=== PATIENT | male | born 1935 | race Caucasian/White ===

== ENCOUNTER 2017-12-17 23:39 | Emergency (ER) | payer MEDICARE, MEDICAID ==
[2017-12-18] MEDS ORDERED: Ondansetron ODT 8 MG TAB ONE (01:06)
[2017-12-18] MEDS ORDERED: Morphine 4 MG/ML VIAL ONE (01:06)
== END 2017-12-18 04:40 | disposition home or self-care (01) ==
LOC: ERS 23:39
DX: M16.12 Unilateral primary osteoarthritis, left hip (principal); M17.12 Unilateral primary osteoarthritis, left knee; I10 Essential (primary) hypertension; J44.9 Chronic obstructive pulmonary disease, unspecified; F17.210 Nicotine dependence, cigarettes, uncomplicated; Z71.6 Tobacco abuse counseling; Z79.82 Long term (current) use of aspirin
CPT/HCPCS: 96374; 99406; J2270

== ENCOUNTER 2019-11-06 02:32 | Emergency (ER) | payer MEDICAID, MEDICARE ==
[2019-11-06 03:16] LABS: #Basophils 0.1 thou/uL (0.0-0.2); #Eosinphils 0.2 thou/uL (0.0-0.7); #Lymphocytes 2.4 thou/uL (1.20-3.40); #Monocytes 1.2 thou/uL (0.11-0.59); #Neutrophils 9.8 thou/uL (1.40-6.50); %Basophils 0.7 % (0.0-1.0); %Eosinophils 1.6 % (0.0-10.0); %Lymphocytes 17.2 % (21.0-51.0); %Monocytes 8.9 % (0.0-10.0); %Neutrophils 71.7 % (42.0-75.0); Hemoglobin 14.6 g/dL (14.0-18.0); Mean Corpuscular HGB CONC 33.9 g/dL (32.0-36.0); Mean Corpuscular Hemoglobin 32.8 pg (27.0-31.0); Mean Corpuscular Volume 96.7 fL (78.0-98.0); Mean Platelet Volume 8.3 fL (7.4-10.4); Platelet Count 257 thou/uL (130-400); RBC Distribution Width 12.8 % (11.5-14.5); Red Blood Cell (RBC) Count 4.44 mill/uL (4.70-6.10); White Blood Cell (WBC) Count 13.7 thou/uL (4.8-10.8)
[2019-11-06] MEDS ORDERED: HYDROcodone/Acetaminophen 5/325 mg Tablet ONE (03:21)
[2019-11-06 03:38] LABS: ALT (SGPT) 13 U/L (8-55); AST (SGOT) 17 U/L (5-34); Albumin 3.9 g/dL (3.4-4.8); Alkaline Phosphatase 98 U/L (40-110); Anion Gap 15 mmol/L (10-20); BUN (Urea Nitrogen) 14 mg/dL (8.4-25.7); Bilirubin, Total 0.4 mg/dL (0.2-1.2); Calc. Creatinine Clearance 0 mL/min (70-130); Calcium 8.8 mg/dL (7.8-10.44); Carbon Dioxide 23 mmol/L (23-31); Chloride 107 mmol/L (98-107); Estimated GFR-MDRD 90; Globulin 2.5 g/dL (2.4-3.5); Glucose 107 mg/dL (83-110); Potassium 3.9 mmol/L (3.5-5.1); Protein, Total 6.4 g/dL (5.8-8.1); Sodium 141 mmol/L (136-145)
--- NOTE | 2019-11-06 07:30 | RAD ---
1 VIEW CHEST: Date: 11/06/2019 HISTORY: Right-sided chest pain for 2-3 days. Coughing. COMPARISON: 07/25/2012. FINDINGS: Linear bibasilar densities are seen, partially imaged on prior exam and may be related to mild bibasi lar scarring. No consolidation or pleural fluid is seen. The cardiac silhouette and pulmonary vascula ture are within normal limits. No other interval change. IMPRESSION: Mild chronic lung changes without evidence of an acute cardiopulmonary process. POS: NEVAEH
== END 2019-11-06 03:52 | disposition home or self-care (01) ==
LOC: ERS 02:32
DX: R07.9 Chest pain, unspecified (principal); J44.9 Chronic obstructive pulmonary disease, unspecified; I10 Essential (primary) hypertension; F17.210 Nicotine dependence, cigarettes, uncomplicated; Z79.899 Other long term (current) drug therapy
CPT/HCPCS: 36415; 71045; 80053; 83880; 84484; 85025; 93005

== ENCOUNTER 2020-08-21 12:47 | Inpatient (IN) | payer MEDICARE, MEDICAID ==
[~2020-08-21 12:47] MED LIST: Iopamidol-370 76% 500 ML 1 ML ONE
[2020-08-21] MEDS ORDERED: Morphine 4 MG/ML VIAL ONE (13:29)
[2020-08-21] MEDS ORDERED: Ondansetron PF 4 MG/2 ML Vial ONE (13:29)
--- NOTE | 2020-08-21 13:35 | RAD ---
Exam: Chest one view HISTORY:Chest pain. Symptoms x2 days. Comparison: 11/06/2019 FINDINGS: Cardiac silhouette: Normal Aorta: Atherosclerosis and elongation Pulmonary vessels: Normal Costophrenic angles: Clear LUNGS: Inflation with chronic changes. No mass or consolidation. Pneumothorax: None Osseous abnormalities: None IMPRESSION: Atherosclerosis. Hyperinflation with chronic lung parenchymal changes
[2020-08-21 13:38] LABS: #Basophils 0.1 thou/uL (0.0-0.2); #Eosinphils 0.2 thou/uL (0.0-0.7); #Lymphocytes 2.6 thou/uL (1.20-3.40); #Neutrophils 4.7 thou/uL (1.40-6.50); %Basophils 0.9 % (0.0-1.0); %Eosinophils 1.9 % (0.0-10.0); %Lymphocytes 30.9 % (21.0-51.0); %Monocytes 11.3 % (0.0-10.0); Hemoglobin 14.2 g/dL (14.0-18.0); Mean Corpuscular HGB CONC 33.2 g/dL (32.0-36.0); Mean Corpuscular Hemoglobin 32.6 pg (27.0-31.0); Mean Corpuscular Volume 98.4 fL (78.0-98.0); Mean Platelet Volume 7.8 fL (7.4-10.4); Platelet Count 248 thou/uL (130-400); RBC Distribution Width 12.8 % (11.5-14.5); Red Blood Cell (RBC) Count 4.36 mill/uL (4.70-6.10); White Blood Cell (WBC) Count 8.5 thou/uL (4.8-10.8)
[2020-08-21 13:52] LABS: Bilirubin Negative (Negative); Blood, Urine 3+ (Negative); Clarity Clear (Clear); Glucose, Urine (Dipstick) Normal (Negative); Ketone, Urine Negative (Negative); Leukocyte 75 Leu/uL (Negative); Nitrite Negative (Negative); Protein, Urine (Dipstick) Negative (Neg-Trace); Specific Gravity, Urine 1.012 (1.002-1.036); Urobilinogen Normal mg/dL (Less than 2); pH, Urine 6.5 (5.0-9.0)
[2020-08-21 13:53] LABS: Bacteria/HPF None Seen HPF (None Seen); RBC/HPF 21-50 HPF (0-3); Squamous Epithelial 0-3 HPF (0-3)
[2020-08-21 14:01] LABS: ALT (SGPT) 16 U/L (8-55); AST (SGOT) 17 U/L (5-34); Albumin 3.9 g/dL (3.4-4.8); Alkaline Phosphatase 83 U/L (40-110); Anion Gap 13 mmol/L (10-20); BUN (Urea Nitrogen) 14 mg/dL (8.4-25.7); Bilirubin, Total 0.3 mg/dL (0.2-1.2); Calc. Creatinine Clearance 0 mL/min (70-130); Calcium 8.4 mg/dL (7.8-10.44); Carbon Dioxide 28 mmol/L (23-31); Chloride 106 mmol/L (98-107); Globulin 2.4 g/dL (2.4-3.5); Glucose 103 mg/dL (83-110); Potassium 4.5 mmol/L (3.5-5.1); Protein, Total 6.3 g/dL (5.8-8.1); Sodium 142 mmol/L (136-145)
--- NOTE | 2020-08-21 14:02 | CT ---
Exam: CTA chest with 3-D rendering: CTA abdomen with 3-D rendering: HISTORY: Chest pain COMPARISON: None TECHNIQUE: CT angiogram of the thoracic and abdominal aorta performed in the axial plane. Three-dimen sional reformatted images are submitted for interpretation. FINDINGS: Chest CT: Mediastinum: No mass, lymphadenopathy or hematoma Heart: Normal heart size. No significant pericardial fluid. Coronary arteries: Scattered atherosclerosis Trachea and central bronchi: Patent Pleural spaces: No pleural effusion. Right lung: Dependent atelectatic changes and nonspecific groundglass opacities in the lower lobe. Mi nimal scarring and atelectasis in the upper lobe. Left lung: Dependent atelectatic changes. Minimal ground glass opacities in the lower lobe. Pneumothorax: None Abdomen CT: Gallbladder: Contracted, likely due to a nonfasting state Portal vein: Limited evaluation. No obvious thrombus. Solid organs: Appropriate arterial phase enhancement of the liver, spleen, pancreas and adrenal gland s Kidneys: Symmetric enhancement. No obstructive uropathy. Multiple hypodensities in the left and right renal cortex. Largest hypodensities are compatible with a exophytic bilateral upper pole cyst. Mesentery: No mass, lymphadenopathy, free air or free fluid Alimentary canal: Limited evaluation by the lack of oral contrast. No evidence of a bowel obstruction . Normal ileocecal . Osseous structures: Multilevel degenerative changes of the lumbar spine. There is vacuum disc phenome non. Remote compression fracture at L1.. CT ANGIOGRAM: Aorta: There is appropriate enhancement and luminal diameter of the thoracic and abdominal aorta. Mil d atherosclerotic disease. Great vessels of the neck: Visualized great vessels of the neck are patent Celiac artery: Mild atherosclerosis. No significant stenosis Superior mesenteric artery and inferior mesenteric artery: No abnormal enhancement. Aortic bifurcation and visualized iliac arteries: Appropriate enhancement Renal arteries: Patent 2 right and solitary left renal arteries. IMPRESSION: No CT evidence for aortic aneurysm or aortic dissection.
[2020-08-21] MEDS ORDERED: cefTRIAXone\\ROCEPHIN 2 GM VIAL ONE (14:15)
[2020-08-21] MEDS ORDERED: Nitroglycerin 0.4 MG TAB (25 Tab Bottle) SL PRN (15:58)
[2020-08-21] MEDS ORDERED: Morphine 2 MG/ML VIAL SLOW IVP PRN (16:00)
[2020-08-21] MEDS ORDERED: Calcium Carbonate 500 MG ChewTAB PO PRN (16:03)
[2020-08-21] MEDS ORDERED: Ondansetron PF 4 MG/2 ML Vial IVP PRN (16:03)
[2020-08-21] MEDS ORDERED: Ondansetron ODT 4 MG TAB PO PRN (16:03)
[2020-08-21] MEDS ORDERED: HYDROcodone/Acetaminophen 5/325 mg Tablet PO PRN ×2 (16:03)
[2020-08-21] MEDS ORDERED: Acetaminophen 325 MG TAB PO PRN (16:03)
--- NOTE | 2020-08-21 16:09 | PDOC.HHP ---
Hospitalist HPI - History of Present Illness Chest pain History of Present Illness: PCP: Dr. Yao Fortune ([facility] [place]) The patient is an 84-year-old male with a past medical history significant for hypertension, hyperlipidemia and COPD that presents to the emergency department for the above complaint. The patient reports the acute onset of left-sided chest pain at approximately 2 AM in the morning. He reports that it woke him up from his sleep. Says that the pain is located left lower chest and back, described as "like getting stabbed by knife", exacerbated by deep inhalation, relieved with morphine. The patient reports that he had another episode of chest pain approximately 1 to 2 weeks ago, however, this pain was located right- sided chest pain, intermittent, described as "you can feel your heart racing", exacerbated and relieved by nothing. He reports that this pain had associated lightheadedness and dizziness. He reports that it lasted for approximately 24 hours and ended spontaneously. He reports it was unrelieved by aspirin and Aleve. He denies any heart palpitations or lightheadedness or swelling to his lower extremities with this episode of chest pain. He denies any shortness of breath or wheezing. He does have COPD and a chronic cough. He denies any history of DVT/PE. He is on "blood thinners", which he thinks is aspirin and Plavix. He reports dysuria and gross hematuria since yesterday. He denies any nausea, vomiting or diarrhea. He denies any melena or hematochezia. He denies any fever or chills. He has no known sick contacts. ED Course: Temperature 98.2 F, BP 186/92, HR 65, RR 16, SpO2 100% room air. EKG sinus bradycardia, PACs, left axis deviation 59 bpm Troponin negative, CXR no acute process CTA abdomen negative for aortic aneurysm or aortic dissection. UA positive leukocytes, WBCs and 3+ blood, no bacteria WBCs 8.5, hemoglobin 14.2, hematocrit 43, platelets 248 CMP unremarkable Medications: Rocephin Morphine Zofran Hospitalist ROS - Review of Systems All other systems reviewed; all pertinent +/- noted in HPI/Subj - Medication Medications: 1. Aspirin unknown dose. 2. Albuterol HFA inhaler as needed SLB/wheezing 3. Unknown nebs as needed Allergies: No known drug allergies CODE STATUS: Full code, confirmed with patient Hospitalist History - Past Medical History Source: patient Cardiac: reports: HTN, Hyperlipidemia Pulmonary: reports: COPD - Past Surgical History Past Surgical History: reports: Hernia Repair, Other (Back surgery) - Family History Other Family History: Poor historian. - Social History Smoking Status: Current every day smoker (2 packs/day greater than 30 years) Alcohol: reports: None Drugs: reports: none Living Situation: With Family Occupation: Works as a mechanical maintenance supervisor heavy machinery Activity level: independent ambulation - Exam General Appearance: NAD, awake alert. negative: ill appearing General - other findings: Uncomfortable Eye: anicteric sclera ENT: normocephalic atraumatic Neck: supple, no lymphadenopathy Heart: RRR, no murmur, no gallops, no rubs, normal peripheral pulses Respiratory: no wheezes, no rales, no ronchi Respiratory - other findings: Diminished throughout Gastrointestinal: soft, non-tender, normal bowel sounds, no guarding, no rigidity Gastrointestinal - other findings: Positive left CVAT Extremities: no cyanosis, no edema Skin: no rashes Neurological: cranial nerve grossly intact, no focal deficits Musculoskeletal: normal tone, normal strength Psychiatric: normal affect, A&O x 3 Hospitalist Results - Labs Result Diagrams: 08/21/20 13:19 08/21/20 13:19 Lab results: WBC 8.5 thou/uL (4.8-10.8) 08/21/20 13:19 Hgb 14.2 g/dL (14.0-18.0) 08/21/20 13:19 Hct 43.0 % (42.0-52.0) 08/21/20 13:19 MCV 98.4 fL (78.0-98.0) H 08/21/20 13:19 Plt Count 248 thou/uL (130-400) 08/21/20 13:19 Neutrophils % 55.0 % (42.0-75.0) 08/21/20 13:19 Sodium 142 mmol/L (136-145) 08/21/20 13:19 Potassium 4.5 mmol/L (3.5-5.1) 08/21/20 13:19 Chloride 106 mmol/L (98-107) 08/21/20 13:19 Carbon Dioxide 28 mmol/L (23-31) 08/21/20 13:19 BUN 14 mg/dL (8.4-25.7) 08/21/20 13:19 Creatinine 0.87 mg/dL (0.7-1.3) 08/21/20 13:19 Glucose 103 mg/dL (83-110) 08/21/20 13:19 Calcium 8.4 mg/dL (7.8-10.44) 08/21/20 13:19 Total Bilirubin 0.3 mg/dL (0.2-1.2) 08/21/20 13:19 AST 17 U/L (5-34) 08/21/20 13:19 ALT 16 U/L (8-55) 08/21/20 13:19 Alkaline Phosphatase 83 U/L (40-110) 08/21/20 13:19 Troponin I Less than 0.010 ng/mL (< 0.028) 08/21/20 13:19 Serum Total Protein 6.3 g/dL (5.8-8.1) 08/21/20 13:19 Albumin 3.9 g/dL (3.4-4.8) 08/21/20 13:19 Urine Ketones Negative mg/dL (Negative) 08/21/20 13:36 Urine Blood 3+ (Negative) A 08/21/20 13:36 Urine Nitrite Negative (Negative) 08/21/20 13:36 Ur Leukocyte Esterase 75 Luisito/uL (Negative) A 08/21/20 13:36 Urine RBC 21-50 HPF (0-3) A 08/21/20 13:36 Urine WBC 7-10 HPF (0-3) A 08/21/20 13:36 Ur Squamous Epith Cells 0-3 HPF (0-3) 08/21/20 13:36 Urine Bacteria None Seen HPF (None Seen) 08/21/20 13:36 - EKG Interpretation EKG: Sinus bradycardia, PACs, left axis deviation - Radiology Interpretation CT scan - abdomen Status: report reviewed by me Additional Comment: Negative for aortic aneurysm or aortic dissection. Hospitalist H&P A/P - Problem (1) Chest pain Code(s): R07.9 - CHEST PAIN, UNSPECIFIED Status: Acute (2) Bradycardia Code(s): R00.1 - BRADYCARDIA, UNSPECIFIED Status: Acute (3) Urinary tract infection with hematuria Code(s): N39.0 - URINARY TRACT INFECTION, SITE NOT SPECIFIED; R31.9 - HEMATURIA, UNSPECIFIED Status: Acute (4) HTN (hypertension) Code(s): I10 - ESSENTIAL (PRIMARY) HYPERTENSION Status: Chronic (5) HLD (hyperlipidemia) Code(s): E78.5 - HYPERLIPIDEMIA, UNSPECIFIED Status: Chronic (6) COPD (chronic obstructive pulmonary disease) Status: Chronic (7) Tobacco abuse Code(s): Z72.0 - TOBACCO USE Status: Chronic - Plan Plan: 84/M with PMH HTN, HLD, COPD presents for chest pain. Admit to telemetry floor, observation status. Expected length of stay less than 2 midnights. #Chest pain, rule out ACS A: Left CVAT, reproducible pain. Symptoms/pain relieved with morphine. Had 2 episodes of chest pain in past couple weeks. Each episode different. Previous episode concerning for cardiac issue. Today more consistent Nephrolithiasis. Chest pain versus nephrolithiasis. Heart score 5, KASSY UA score 3. Trend troponins, check TSH, FLP, mag level. Continue to hold aspirin due to hematuria. Give high intensity statin. Kinsley as needed, morphine as needed breakthrough pain. #Bradycardia EKG SB, 59 bpm's Order echocardiogram. Check electrolytes, TSH. Can consider cardiology consult based on findings. #Urinary tract infection with hematuria UA 3+ blood, WBCs, leukocyte esterase, no bacteria A: Positive for left CVAT No pyuria, afebrile. Continue Rocephin. Urine culture pending Order renal ultrasound to r/o nephrolithiasis. Check PT/INR. Patient typed and screened. Start Flomax. Consider urology consult based on findings #HTN Presented hypertensive. Poor historian related to home medications. Failed attempt to contact son via telephone in order to reconcile home medications. Voicemail full. We will monitor BP and add as needed antihypertensives as necessary. #Hyperlipidemia Check FLP. Start high intensity statin. #COPD Chronic, stable. Has as needed albuterol HFA and nebs at home. We will add if needed. #Tobacco abuse 2 pack/day smoker times greater than 30 years. Unwilling to quit. Refusing nicotine patch. Counseled tobacco cessation. No pharmacological DVT prophylaxis. SCDs for DVT prophylaxis. No GI prophylaxis. CODE STATUS is full code. Contact is his son Raoul at [phone]. Discussed the case with attending physician, Dr. Elias.
[2020-08-21 16:22] LABS: PTT 38.7 sec (22.9-36.1); Prothrombin Time 13.1 sec (12.0-14.7)
--- NOTE | 2020-08-21 17:51 | ULT ---
EXAM: BILATERAL RENAL ULTRASOUND 08/21/20 HISTORY: Hematuria. COMPARISON: None. FINDINGS: Bilaterally, no hydronephrosis. Right kidney measures 10.7 x 5.4 x 5.4 cm. Left kidney measures 10.5 x 5.4 x 5.1 cm. Mild bilateral renal cortical thinning. Anechoic focus emanating from the upper pole of the right kidney measures 3.1 x 3.8 x 2.7 cm, compati ble with exophytic cysts. Anechoic focus of the upper pole of the left kidney measures 4.1 x 4.7 x 4.7 cm, compatible with cyst . Additional smaller anechoic foci are identified in the left renal cortex. Bladder volume is 215 mL. No mucosal abnormality. IMPRESSION: 1. No hydronephrosis. 2. Bilateral renal cortical cysts. POS: PPP
[2020-08-21] MEDS ORDERED: hydrALAZINE 20 MG/ML VIAL SLOW IVP PRN (17:52)
[2020-08-21 17:56] VITALS: BMI 21.7
[2020-08-21 20:20] LABS: Hemoglobin 13.6 g/dL (14.0-18.0)
[2020-08-21] MEDS: Tamsulosin HCl 0.4 MG CAP PO SCH (20:23)
[2020-08-21] MEDS: Atorvastatin Calcium 40 MG TAB PO SCH (20:23)
[2020-08-21 20:45] LABS: Troponin I 0.011 ng/mL (< 0.028)
[2020-08-22 02:42] LABS: SARS-CoV-2 MS2 Positive; SARS-CoV-2 N Gene Negative; SARS-CoV-2 S Gene Negative; SARS-CoV-2 by NAA Not Detected (NotDetected); SARS-CoV-2 orf1ab Negative
[2020-08-22 04:42] LABS: #Eosinphils 0.2 thou/uL (0.0-0.7); #Neutrophils 5.3 thou/uL (1.40-6.50); %Basophils 0.5 % (0.0-1.0); %Eosinophils 2.2 % (0.0-10.0); %Lymphocytes 23.5 % (21.0-51.0); %Monocytes 11.7 % (0.0-10.0); %Neutrophils 62.2 % (42.0-75.0); Hemoglobin 13.3 g/dL (14.0-18.0); Mean Corpuscular HGB CONC 32.7 g/dL (32.0-36.0); Mean Corpuscular Hemoglobin 31.9 pg (27.0-31.0); Mean Corpuscular Volume 97.6 fL (78.0-98.0); Mean Platelet Volume 7.9 fL (7.4-10.4); Platelet Count 226 thou/uL (130-400); RBC Distribution Width 12.7 % (11.5-14.5); Red Blood Cell (RBC) Count 4.15 mill/uL (4.70-6.10); White Blood Cell (WBC) Count 8.5 thou/uL (4.8-10.8)
[2020-08-22 04:58] LABS: Anion Gap 11 mmol/L (10-20); BUN (Urea Nitrogen) 14 mg/dL (8.4-25.7); Calc. Creatinine Clearance 70 mL/min (70-130); Calcium 8.2 mg/dL (7.8-10.44); Carbon Dioxide 27 mmol/L (23-31); Cardiac Risk 3.5 (Less than 4.5); Chloride 105 mmol/L (98-107); Cholesterol 149 mg/dl (< 200 Desired); Glucose 92 mg/dL (83-110); HDL Cholesterol 43 mg/dL (>60 Neg Risk); LDL Cholesterol, Calculated 91 mg/dL; Potassium 4.3 mmol/L (3.5-5.1); Sodium 139 mmol/L (136-145); Triglycerides 74 mg/dL (Less than 150)
[2020-08-22] MEDS: cefTRIAXone\\ROCEPHIN 1 GM in Sodium Chloride 0.9% 100 ML IVPB SCH (14:18)
[2020-08-22] MEDS: Tamsulosin HCl 0.4 MG CAP PO SCH (19:37)
[2020-08-22] MEDS: Atorvastatin Calcium 40 MG TAB PO SCH (19:37)
--- NOTE | 2020-08-22 21:30 | PDOC.HOSPP ---
- Subjective Encounter Date: 08/22/20 Encounter Time: 13:00 Subjective: Patient seen and examined for chest discomfort which is resolved. Gross hematuria improving. Denies any new complaints. No palpitations, nausea, diaphoresis reported - Objective Vital Signs & Weight: Vital Signs (12 hours) Temp Pulse Resp BP BP BP BP 08/22/20 19:33 98.3 F 67 20 139/77 08/22/20 16:30 98.6 F 66 14 147/81 H 08/22/20 16:03 147/81 H 126/85 146/95 H 08/22/20 12:00 98.8 F 64 15 125/73 Pulse Ox 08/22/20 19:33 94 L 08/22/20 16:30 93 L 08/22/20 16:03 08/22/20 12:00 94 L Weight Weight 160 lb 8 oz I&O: 08/21/20 08/22/20 08/23/20 06:59 06:59 06:59 Intake Total 1200 600 Output Total 600 850 Balance 600 -250 Result Diagrams: 08/22/20 04:02 08/22/20 04:02 Additional Labs: Abnormal Lab Results - Last 48 hrs 08/21/20 13:19: RBC 4.36 L, MCV 98.4 H, MCH 32.6 H, Monocytes % 11.3 H, Monocytes # 1.0 H 08/21/20 13:20: APTT 38.7 H 08/21/20 13:36: Urine Blood 3+ A, Ur Leukocyte Esterase 75 A, Urine RBC 21-50 A, Urine WBC 7-10 A 08/21/20 20:12: Hgb 13.6 L, Hct 40.2 L 08/22/20 04:02: RBC 4.15 L, Hgb 13.3 L, Hct 40.5 L, MCH 31.9 H, Monocytes % 11.7 H, Monocytes # 1.0 H Microbiology - Entire Visit 08/21/20 13:36 Urine voided Urine Culture - Preliminary 08/21/20 13:23 Stool - Pending - Final Radiology Reviewed by me: Yes (CT showed no dissection) EKG Reviewed by me: Yes (Sinus rhythm on telemetry) Hospitalist ROS - Review of Systems Respiratory: denies: cough, dry, shortness of breath, hemoptysis, SOB with excertion, pleuritic pain, sputum, wheezing, other Cardiovascular: denies: chest pain, palpitations, orthopnea, paroxysmal noc. dyspnea, edema, light headedness, other - Medication Medications: Active Medications Generic Name Dose Route Start Last Admin Trade Name Freq PRN Reason Stop Dose Admin Atorvastatin Calcium 40 mg 08/21/20 21:00 08/22/20 19:37 Atorvastatin Calcium 40 Mg Tab PO 40 mg HS CHRISTOFER Administration Ceftriaxone Sodium 1 gm/ 100 mls @ 200 mls/hr 08/22/20 14:00 08/22/20 14:18 Sodium Chloride IVPB 100 mls Q24HR CHRISTOFER Administration Sodium Chloride 10 ml 08/21/20 15:58 08/21/20 20:22 Flush - Normal Saline 10 Ml Syringe IVF 10 ml PRN PRN Administration Saline Flush Tamsulosin HCl 0.4 mg 08/21/20 21:00 08/22/20 19:37 Tamsulosin Hcl 0.4 Mg Cap PO 0.4 mg HS CHRISTOFER Administration - Exam General Appearance: NAD ENT: normocephalic atraumatic, no oropharyngeal lesions Neck: supple, symmetric, no JVD, no thyromegaly Heart: RRR, no gallops, no rubs, normal peripheral pulses Respiratory: no wheezes, no rales, no ronchi, normal chest expansion Gastrointestinal: soft, non-tender, non-distended, normal bowel sounds Extremities: no cyanosis, no clubbing Skin: normal turgor Neurological: no new deficit Musculoskeletal: normal tone Psychiatric: normal affect, normal behavior, A&O x 3 Hosp A/P - Plan DVT proph w/SCDs Chest discomfortacute coronary syndrome ruled out Gross hematuriaimproving Hypertension Hyperlipidemia COPD Tobacco dependencemore than [id number] Plan: Chest pain is resolved. Gross hematuria improving. Patient has a long history of tobacco dependence and probably has underlying coronary artery disease. He denies recent workup. We will schedule a stress test. Was advised to follow up with urology as outpatient. If his gross hematuria worsens then will consult urology in a.m.
[2020-08-23] MEDS ORDERED: Regadenoson 0.4 MG/5 ML SYRINGE ONE (08:21)
--- NOTE | 2020-08-23 11:22 | NM ---
Radionucleotide stress and rest myocardial perfusion scan with CT attenuation correction and SPECT im aging Left ventricular wall motion evaluation and ejection fraction HISTORY: Chest pain. FINDINGS: Lexiscan protocol. Homogeneous uptake of radiotracer throughout the left ventricular myocar dium. No focal perfusion defect or reversibility. QGS analysis of gated SPECT images shows no focal wall motion abnormalities. Ejection fraction calcul ated at 75%. IMPRESSION : No evidence of ischemia. Normal LVEF.
[2020-08-23 11:40] VITALS: BP 130/75; TEMP 98.3
--- NOTE | 2020-08-23 12:11 | PDOC.DS.DS ---
Provider - Provider Date of Admission: 08/21/20 15:19 Date of Discharge: 08/23/20 Admitting Provider: Armida Elias MD Primary Care Physician: NO PCP PROVIDER Course - Hospital Course Hospital Course: The patient is an 84-year-old male with past medical history of hypertension, hyperlipidemia, and COPD who was admitted to the hospital with complaints of chest pain and gross hematuria. EKG did not show any ST elevations and serial troponins were unremarkable. Nuclear stress test was performed which did not show any evidence of reversible ischemia. His gross hematuria was managed relatively and was resolved prior to discharge. Outpatient follow-up with urolo gy was recommended. Resuscitation Status: 08/21/20 16:03 Resuscitation Status Routine Co-Sign Provider: Resuscitation Status: FULL: Full Resuscitation Discussed with: patient - Labs Lab Results: 08/22/20 04:02 08/22/20 04:02 Abnormal Lab Results - Last 48 hrs 08/21/20 13:19: RBC 4.36 L, MCV 98.4 H, MCH 32.6 H, Monocytes % 11.3 H, Mo nocytes # 1.0 H 08/21/20 13:20: APTT 38.7 H 08/21/20 13:36: Urine Blood 3+ A, Ur Leukocyte Esterase 75 A, Urine RBC 21-50 A, Urine WBC 7-10 A 08/21/20 20:12: Hgb 13.6 L, Hct 40.2 L 08/22/20 04:02: RBC 4.15 L, Hgb 13.3 L, Hct 40.5 L, MCH 31.9 H, Monocytes % 11.7 H, Monocytes # 1.0 H Microbiology - Entire Visit 08/21/20 13:36 Urine voided Urine Culture - Final 08/21/20 13:23 Stool - Pending - Final - Physical Exam Vitals: Vital Signs (12 hours) Temp Pulse Resp BP BP BP Pulse Ox 08/23/20 11:35 98.3 F 79 16 130/75 96 08/23/20 07:30 98.1 F 72 16 132/91 H 95 08/23/20 03:14 97.9 F 69 20 133/84 93 L Weight Weight 160 lb 8 oz Physical Exam: The patient was seen and examined on the day of discharge. Plan - Discharge Medications Home Medications: Medication Instructions Recorded Confirmed Type Albuterol Sulfate [Albuterol 2 puff IH Q4HR PRN 03/11/15 08/21/20 History Sulfate HFA] Atorvastatin Calcium [Lipitor] 20 mg PO DAILY 08/21/20 08/21/20 History Clopidogrel Bisulfate [Clopidogrel] 75 mg PO DAILY 08/21/20 08/21/20 History Trilogy 1 puff INH DAILY 08/21/20 08/21/20 History traMADol HCl [Tramadol HCl] 50 mg PO QID PRN 08/21/20 08/21/20 History Allergies: No Known Allergies Allergy (Verified 08/21/20 20:42) - Discharge Instructions Discharge Instructions:: Follow-up with urology in 1 week - Follow up Plan Referrals: Eduardo Vega MD [Active] - 7 Days (Call the Dr's office and st up an appointment within 7 days.) Disposition: HOME Quality - Care Measures CORE MEASURES:: N/A
[2020-08-23] MEDS: cefTRIAXone\\ROCEPHIN 1 GM in Sodium Chloride 0.9% 100 ML IVPB SCH (14:16)
== END 2020-08-23 15:30 | disposition home or self-care (01) | DRG 690 ==
LOC: ERS 12:47 → 2NO 15:19
PROVIDERS: ADMIT Internal Medicine; ATTEND Internal Medicine
DX: N39.0 Urinary tract infection, site not specified (principal); Z20.822 Contact with and (suspected) exposure to COVID-19; Z23 Encounter for immunization; R31.0 Gross hematuria; E78.5 Hyperlipidemia, unspecified; I10 Essential (primary) hypertension; J44.9 Chronic obstructive pulmonary disease, unspecified; G89.29 Other chronic pain; M25.552 Pain in left hip; F17.210 Nicotine dependence, cigarettes, uncomplicated; M25.512 Pain in left shoulder; R07.9 Chest pain, unspecified; Z98.890 Other specified postprocedural states; Z79.82 Long term (current) use of aspirin; Z79.51 Long term (current) use of inhaled steroids
CPT/HCPCS: 36415; 71045; 71275; 74174; 76770; 78452; 80048; 80053; 80061; 81003; 81015; 82270; 83735; 84443; 84484; 85025; 85610; 85730; 86850; 86900; 86901; 87086; 87635; 90471; 90732; 93005; 93017; 93306; 94760; A9500; G0009; J0696; J2270; J2405; J2785; J3490; Q9967; U0003